=== PATIENT | male | born 1960 | race Caucasian/White ===

== ENCOUNTER 2020-11-18 15:44 | Inpatient (IN) | payer BC ==
[~2020-11-18] VITALS: Ht 172.7 cm; Wt 86.4 kg
[2020-11-18 16:27] LABS: BASOPHILS % (AUTO) 0.4 % (0-1); EOSINOPHILS # (AUTO) 0.1 X10'3 (0-0.9); EOSINOPHILS % (AUTO) 1.4 % (0-6); HEMATOCRIT 51.3 % (42.0-52.0); HEMOGLOBIN 17.4 g/dl (14.0-17.9); LYMPHOCYTES # (AUTO) 2.1 X10'3 (1.1-4.8); LYMPHOCYTES % (AUTO) 24.4 % (21-51); MEAN CORPUSCULAR HEMOGLOBIN 32.2 PG (27.0-31.0); MEAN CORPUSCULAR HGB CONC 33.9 g/dL (33.0-36.5); MEAN CORPUSCULAR VOLUME 94.9 FL (78-98); MEAN PLATELET VOLUME 7.7 FL (7.4-10.4); MONOCYTES # (AUTO) 0.7 X10'3 (0-0.9); MONOCYTES % (AUTO) 8.4 % (2-12); NEUTROPHILS # (AUTO) 5.7 X10'3 (1.8-7.7); NEUTROPHILS % (AUTO) 65.4 % (42-75); PLATELET COUNT 199 X10'3 (140-440); RED CELL DISTRIBUTION WIDTH 13.7 % (11.5-14.5); WHITE BLOOD COUNT 8.8 X10'3 (4.5-11.0)
[2020-11-18 16:50] LABS: ALANINE AMINOTRANSFERASE 50 U/L (12-78); ALBUMIN 3.8 G/DL (3.4-5.0); ALBUMIN/GLOBULIN RATIO 1.1 (1.1-1.5); ALKALINE PHOSPHATASE 67 IU/L (46-116); ANION GAP 11 (8-16); ASPARTATE AMINO TRANSFERASE 23 U/L (10-37); BILIRUBIN,TOTAL 0.4 MG/DL (0.1-1.0); BLOOD UREA NITROGEN 18 MG/DL (7-18); CALCIUM 8.5 MG/DL (8.5-10.1); CHLORIDE 102 MMOL/L (99-107); GLUCOSE 109 MG/DL (70-104); POTASSIUM 3.8 MMOL/L (3.5-5.1); SODIUM 137 MMOL/L (135-145); TOTAL CARBON DIOXIDE 23.8 MMOL/L (24-32); TOTAL PROTEIN 7.2 G/DL (6.4-8.2); eGFR 76 ML/MIN
[2020-11-18 17:01] LABS: MAGNESIUM 2.2 MG/DL (1.5-2.4)
[2020-11-18] MEDS ORDERED: PANT40TA54 PO (18:02)
[2020-11-18] MEDS ORDERED: ROSU5TAB12 PO (18:02)
[2020-11-18] MEDS ORDERED: magnesium 2GM in 50ml NS 50 ML IV PRN (18:30)
[2020-11-18] MEDS ORDERED: morphine 2 MG/ML inj. syringe IV PRN ×2 (18:30)
[2020-11-18] MEDS ORDERED: HYDROcodone/acetaminophen 5mg/325mg tablet PO PRN (18:30)
[2020-11-18] MEDS ORDERED: potassium Cl 20 mEq SR tablet PO PRN ×2 (18:30)
[2020-11-18] MEDS ORDERED: HYDROcodone/acetaminophen 10/325mg tab PO PRN (18:30)
[2020-11-18] MEDS ORDERED: diphenhydrAMINE 25mg capsule PO PRN (18:30)
[2020-11-18] MEDS ORDERED: bisacodyl 10mg suppository rectal RC PRN (18:30)
[2020-11-18] MEDS ORDERED: potassium Cl 40MEQ/1/2NS 520ml 520 ML IV PRN ×2 (18:30)
[2020-11-18] MEDS ORDERED: ondansetron/PF 4mg/2ml inj IV PRN (18:30)
[2020-11-18] MEDS ORDERED: magnesium Cl slow-release 64mg tablet PO PRN (18:30)
[2020-11-18] MEDS ORDERED: mag hydrox/Alum hydrox/simeth 30ml oral suspension PO PRN (18:30)
[2020-11-18] MEDS ORDERED: magnesium hydroxide 30ml (MOM) UD suspension PO PRN (18:30)
[2020-11-18] MEDS ORDERED: acetaminophen 650mg rectal suppository RC PRN (18:30)
[2020-11-18] MEDS ORDERED: magnesium 4gm in 100ml NS 100 ML IV PRN (18:30)
[2020-11-18] MEDS ORDERED: acetaminophen 325mg tablet PO PRN ×2 (18:30)
[2020-11-18] MEDS: normal saline 1000ml 1,000 ML IV SCH (19:13)
--- NOTE | 2020-11-18 19:29 | NUR ---
PT WITH STABLE VS AND NO PAIN AND NO CP AND NO SYMPTOMS AT THIS TIME. 3 HR TROP DRAWN. PTS JUST LEFT TO GET PT SOME DINNER. PT AWAITING IPA.
[2020-11-18 19:32] LABS: CLARITY,URINE CLEAR (Clear); COLOR,URINE YELLOW (Yellow); GLUCOSE, URINE NEGATIVE (Neg); KETONES,URINE NEGATIVE (Neg); LEUKOCYTE ESTERASE ,URINE NEGATIVE (Neg); NITRITES, URINE NEGATIVE (Neg); OCCULT BLOOD,URINE TRACE-INTACT (Neg); PH,URINE 5.5 (4.8-8.0); PROTEIN,URINE NEGATIVE (Neg); UROBILINOGEN,URINE 0.2 E.U/dL (0.2-1.0)
[2020-11-18 19:35] LABS: UA COLLECTION TYPE URINAL
[2020-11-18 19:38] LABS: BACTERIA,URINE NONE SEEN /HPF (Neg); MUCUS STRANDS FEW /LPF (Neg); RBC,URINE 0-2 /HPF (0-2); SQUAMOUS EPITHELIAL CELL,UR FEW /LPF (FEW); WBC,URINE 0-4 /HPF (0-4)
[2020-11-18] MEDS: K and/or MAG REPLACEMENT MC SCH (20:00)
--- NOTE | 2020-11-18 20:30 | NUR ---
OBTAINED RECORDS FROM [facility] REQUESTED BY DR RYAN, GAVE TO DR RYAN, WHILE IN PATIENTD ROOM.
--- NOTE | 2020-11-18 20:39 | NUR ---
dR bolton , dr HEWITT CONSULTING WITH PATIENT IN ROOM.
[2020-11-18 21:12] LABS: HEMOGLOBIN A1C 5.9 % (4.5-6.2)
[2020-11-18] MEDS: heparin, porcine 5000 units/ml vial SQ SCH (21:45)
[2020-11-18 22:45] VITALS: BP 146/87
[2020-11-18 22:46] VITALS: BP_SYST 146; BP_SYST 156; BP_DIAS 87
[2020-11-18 22:47] VITALS: BP 131/84
--- NOTE | 2020-11-18 23:01 | NUR ---
performed orthostatic bps on patient , results were positive , dr. perez was made aware . no new orders at this time
[2020-11-19 04:01] LABS: BASOPHILS % (AUTO) 0.6 % (0-1); EOSINOPHILS # (AUTO) 0.1 X10'3 (0-0.9); EOSINOPHILS % (AUTO) 1.5 % (0-6); HEMATOCRIT 48.1 % (42.0-52.0); HEMOGLOBIN 16.1 g/dl (14.0-17.9); LYMPHOCYTES # (AUTO) 1.7 X10'3 (1.1-4.8); LYMPHOCYTES % (AUTO) 24.9 % (21-51); MEAN CORPUSCULAR HEMOGLOBIN 31.6 PG (27.0-31.0); MEAN CORPUSCULAR HGB CONC 33.5 g/dL (33.0-36.5); MEAN CORPUSCULAR VOLUME 94.5 FL (78-98); MEAN PLATELET VOLUME 7.5 FL (7.4-10.4); MONOCYTES # (AUTO) 0.7 X10'3 (0-0.9); MONOCYTES % (AUTO) 9.8 % (2-12); NEUTROPHILS # (AUTO) 4.2 X10'3 (1.8-7.7); NEUTROPHILS % (AUTO) 63.2 % (42-75); PLATELET COUNT 191 X10'3 (140-440); RED BLOOD COUNT 5.09 X10'6 (4.70-6.10); RED CELL DISTRIBUTION WIDTH 13.6 % (11.5-14.5); WHITE BLOOD COUNT 6.7 X10'3 (4.5-11.0)
[2020-11-19 04:22] LABS: ALANINE AMINOTRANSFERASE 47 U/L (12-78); ALBUMIN 3.2 G/DL (3.4-5.0); ALBUMIN/GLOBULIN RATIO 1.1 (1.1-1.5); ALKALINE PHOSPHATASE 56 IU/L (46-116); ANION GAP 9 (8-16); ASPARTATE AMINO TRANSFERASE 22 U/L (10-37); BILIRUBIN,TOTAL 0.4 MG/DL (0.1-1.0); BLOOD UREA NITROGEN 18 MG/DL (7-18); BUN/CREATININE RATIO 18.2 (5.4-32.0); CALCIUM 8.2 MG/DL (8.5-10.1); CHLORIDE 107 MMOL/L (99-107); CREATININE 0.99 MG/DL (0.60-1.10); GLUCOSE 123 MG/DL (70-104); POTASSIUM 3.5 MMOL/L (3.5-5.1); SODIUM 141 MMOL/L (135-145); TOTAL PROTEIN 6.2 G/DL (6.4-8.2); eGFR 77 ML/MIN
[2020-11-19 04:32] LABS: CHOL/HDL RATIO 3.6 (0.00-4.99); CHOLESTEROL 166 MG/DL (0-200); HDL CHOLESTEROL 46 MG/DL (35-60); LDL CHOLESTEROL 87 MG/DL (50-100); MAGNESIUM 2.2 MG/DL (1.5-2.4); PHOSPHORUS 4.3 MG/DL (2.3-4.5); TRIGLYCERIDES 210 MG/DL (20-135)
[2020-11-19 06:00] VITALS: BP 116/69
--- NOTE | 2020-11-19 06:00 | NUR ---
Patient in room PCU 3015. I have received report from [facility] and had the opportunity to ask questions and assume patient care.
[2020-11-19] MEDS: heparin, porcine 5000 units/ml vial SQ SCH (07:41)
[2020-11-19] MEDS: normal saline 1000ml 1,000 ML IV SCH (07:50)
[2020-11-19 08:00] VITALS: BP_SYST 130; BP_SYST 146; BP_SYST 153; BP_DIAS 68; BP_DIAS 89; BP_DIAS 92
[2020-11-19] MEDS ORDERED: atorvastatin 20mg tablet PO SCH (08:00)
[2020-11-19] MEDS: K and/or MAG REPLACEMENT MC SCH (08:00)
[2020-11-19] MEDS ORDERED: pantoprazole 40mg Tablet.DR PO SCH (08:00)
[2020-11-19 11:00] VITALS: BP 148/92
--- NOTE | 2020-11-19 14:12 | NUR ---
This nurse present during a discussion patient and had with Dr. Bullock, at which time patient and decided to not have CTA heart performed in this hospital, electing instead to have this diagnostic at [facility] on an outpatient basis, as they already have a consultation set up there for that purpose.
--- NOTE | 2020-11-19 17:31 | NUR ---
Paged Dr Bullock: PAGER ID: [phone] MESSAGE: Yair Mack [id number] MRI/MRA head resulted negative, both reports contained within the MRI report. Will pt d/c tessa? Ami [phone]
--- NOTE | 2020-11-19 18:17 | NUR ---
Patient stable for discharge per MD orders. PIV discontinued intact. Telemetry equipment removed and returned to telemetry office. All discharge instructions reviewed, all patient and family questions answered, patient and indicated understanding of instructions. 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
== END 2020-11-19 18:00 | disposition home or self-care (01) | DRG 312 ==
LOC: ER 15:45 → ED HOLD 18:29 → UNDOADMIN 18:29 → ED HOLD 18:37 → PCU 3S 22:15 → ED HOLD 22:15
PROVIDERS: ADMIT Family Medicine; ATTEND Family Medicine
DX: R55 Syncope and collapse (principal); E78.00 Pure hypercholesterolemia, unspecified; E78.5 Hyperlipidemia, unspecified; I10 Essential (primary) hypertension; Z20.822 Contact with and (suspected) exposure to COVID-19; S09.8XXA Other specified injuries of head, initial encounter; K21.9 Gastro-esophageal reflux disease without esophagitis; X58.XXXA Exposure to other specified factors, initial encounter; Z95.0 Presence of cardiac pacemaker; Z82.5 Family history of asthma and other chronic lower respiratory diseases; Z82.0 Family history of epilepsy and other diseases of the nervous system; Y93.89 Activity, other specified; Y92.89 Other specified places as the place of occurrence of the external cause; Y99.8 Other external cause status
CPT/HCPCS: 36415; 70450; 70544; 70551; 71045; 80053; 80061; 81001; 83036; 83735; 83880; 84100; 84439; 84443; 84484; 85025; 87081; 87635; 93005; 93306; 93880; 97116; 97161; 99285; G0378; J1644; J7030